=== PATIENT | male | born 2005 | race African-American/Black ===

== ENCOUNTER 2025-06-05 04:33 | Emergency (ER) | payer MEDICAID, SELFPAY ==
[2025-06-05 04:35] VITALS: BP 136/79; PULSE 91; RESP 20; TEMP 36.6; O2SAT 96; BMI 25.0
--- NOTE | 2025-06-05 04:48 | ED.VIS.DYS ---
HPI History of Present Illness Chief Complaint: Asthma Narrative Narrative: Patient is a 19-year-old male presenting to the emergency department for shortness of breath. Patient has a past medical history of asthma. Patient states that yesterday he was helping his mom move and was exerting himself for about 10 hours during the day. States that he thinks this flared up his asthma. He has a past medical history of asthma but does not currently use an inhaler. Woke up this morning with shortness of breath. States before this he felt well, denies any fever, chills, sore throat, cough, congestion. Denies any chest pain. Denies any lower extremity edema. States this feels like his prior asthma exacerbations. [facility] Medical History Asthma Home Medications ?Medication ?Instructions ?Recorded ?Last Taken ?Type albuterol sulfate 90 mcg/actuation 2 inh inhalation Q4H PRN wheezing 06/05/25 Unknown Rx breath activated powder inhaler #1 ea prednisone 50 mg tablet 50 mg PO DAILY 4 days #4 tabs 06/05/25 Unknown Rx Social History Smoking Status: Never smoker ROS ROS ED ROS Narrative See HPI EXAM Physical Exam Narrative Exam Narrative: Vital signs: Reviewed General: Alert and oriented x 3. No acute distress HEENT: Head is normocephalic and atraumatic, sinuses nontender, pupils equal round and reactive. Nares are patent. Oropharynx and throat exams normal. Neck: Supple without lymphadenopathy nontender Cardiovascular: Regular rate and rhythm, no murmurs. No rubs or gallops. Normal S1 and S2 Respiratory: Faint expiratory wheezing heard in all lung haro. No rhonchi or rails heard. Saturating 96% on room air. Not tachypneic. Abdominal: Soft and nontender. Normal bowel sounds. No guarding or rebound. Nonsurgical abdomen Extremities: No tenderness. No bruising. Normal range of motion. Normal sensation. Skin: No rash or redness. Neurological: Cranial nerves II through XII are grossly intact. Normal strength and sensation. Normal cerebellar function The rest of the physical exam is unremarkable Const Vital Signs: 06/05/25 04:35 06/05/25 04:37 06/05/25 04:57 Temperature 97.8 F Temperature Source Oral Pulse Rate 91 106 H Respiratory Rate 20 H 20 H Respiratory Effort Normal Non-Labored Respiratory Depth Normal Respiratory Pattern Normal Normal Blood Pressure 136/79 H Blood Pressure Mean 98 Pulse Ox 96 Oxygen Delivery Method Room Air Room Air MDM MDM MDM Narrative Medical decision making narrative: Patient is a 19-year-old male presenting emergency department for an asthma exacerbation. Patient was seen and examined. Vitals are stable. Patient resting bed comfortably no acute distress. No tachypnea on exam. No tachycardia. Saturating 96% on room air. Prednisone p.o. and breathing treatments were ordered. Feels similar to asthma exacerbations in the past. No chest pain. No indication for chest imaging, ekg or labs. Patient reevaluated. Feeling much better. Lungs are clear to auscultation. Mild tachycardia at 106, attribute this to the breathing treatments. Patient is asymptomatic. Patient given a 4-day prescription for prednisone and prescribed albuterol inhaler to use every 4 hours as needed for shortness of breath and wheezing. Given primary care follow-up. Patient discharged from the Emergency Department. I do not feel that the patient's evaluation reveals any acute reason for admission at this time. I instructed them to either follow-up with their primary care physician or promptly return to the Emergency Department for reevaluation should symptoms worsen or new symptoms develop. I explained what symptoms would indicate the need to return to the emergency department. Shared decision making was used. The patient voiced understanding of the treatment plan and is agreeable with it. Clinical impression Asthma exacerbation History & Record Review Discussion w/independent historian: Patient Discharge Plan Triage Chief Complaint: Asthma ED Provider: Marina Dutton Dx/Rx/DC Orders Clinical Impression: Asthma Instructions: ED Asthma, Acute (Adult) Prescriptions: New prednisone 50 mg tablet 50 mg PO DAILY 4 Days Qty: 4 0RF albuterol sulfate 90 mcg/actuation aerosol powdr breath activated 2 inh inhalation Q4H PRN (Reason: wheezing) Qty: 1 1RF Primary Care Provider: Care Physician,No Primary Referrals: Kehinde Turk MD [Med Staff - Certified Scrum Master] - 2 Days Activity Restrictions/Additional Instructions: Your evaluation in the Emergency Department did not reveal any acute reason for admission. However, I want to emphasize that you may be early in the course of a disease process or illness even if it is not present. For this reason you should follow-up within 24 hours for reevaluation with either your primary care physician or if necessary back here in the Emergency Department. You should return to the Emergency Department immediately if your symptoms worsen or new symptoms develop. Print Language: Greek Disposition Disposition: Home, Self Care
[2025-06-05 04:57] VITALS: PULSE 106; RESP 20
--- OUTSIDE RECORDS SUMMARY | 2025-06-05 05:21 | XMS RPT_ITS | CCD ---
Author Organization [facility] Inform ion [facility] Care Team Providers Care Archivist Economic History Name Role Phone KYLER ACKERMAN, MARIA E Herrera Primary Care Physician JENNIFER HI Attending Unavailable JENNIFER HI Primary Care Unavailable REFERRED, SELF Referring Unavailable REFERRED, SELF Referring Unavailable JENNIFER HI Attending Unavailable JENNIFER HI Primary Care Unavailable Unavailable Primary Care Provider Unavailabl e PHYSICIAN, NONE Primary Care Physician Unavailab le PHYSICIAN, NONE Primary Care Unavailable NOREEN CHAPMAN DO Attending Unavailable Cleveland Mckeon Attending Provider Cleevland Mckeon Attending Unavailable Medications Current Medications Medication Drug Class(es) Dates Sig (Normalized) Sig (Original) albuterol MDI (90 mcg/inh) CFC free inhalation aerosol (1 source) Start: 11-09-2024 take 2 puff(s) by inhalation four times daily as needed for wheezing albuterol MDI (90 mcg/inh) CFC free inhalation aerosol 2 puff(s), Inhalation, QID, PRN as needed for wheezing, # 6.7 gram(s), 0 Refill(s) Start Date: 11/09/24 Status: Ordered Quantity: 6.7 Unit: g Repeat number: 1 Amphetamine / Dextroamphetamine (1 source) Central Nervous System Stimulant Start: 10-26-2021 Adderall Oral, 0 Refill(s), 35 Start Date: 10/26/21 Status: Ordered Adderall (1 source) Central Nervous System Stimulant Start: 10-26-2021 Adderall Oral, 0 Refill(s), 35 Start Date: 10/26/21 Status: Ordered Repeat number: 1 Lexapro (2 sources) Serotonin Reuptake Inhibitor Start: 10-26-2021 Lexapro Oral, qDay, 0 Refill(s) Start Date: 10/26/21 Status: Ordered Repeat number: 1 Start: 10-26-2021 Lexapro Oral, qDay, 0 Refill(s) Start Date: 10/26/21 Status: Ordered hydrocortisone 25 mg/ml topical cream (1 source) Corticosteroid Start: 11-09-2024 End: 11-19-2024 hydrocortisone 2.5% topical cream Apply 1 yonny, Topical, TID, # 28 gram(s), 0 Refill(s), Cream, 68 Start Date: 11/09/24 Stop Date: 11/19/24 Status: Ordered Quantity: 28.0 Unit: g Repeat number: 1 Completed/Discontinued Medications Medication Drug Class(es) Dates Sig (Normalized) Sig (Original) B-Complex Plus (Pure Encapsulations) (2 sources) Start: 07-10-2021 End: 12-31-2024 take 1 capsule by mouth once daily at mealtime B-Complex Plus (Pure Encapsulations) Take 1 capsule by mouth daily with food. 07/10/2021 12/31/2024 Discontinued Start: 07-10-2021 take 1 capsule by mo uth once daily at mealtime B-Complex Plus (Pure Encapsulations) Take 1 capsule by mouth daily with food. 07/10/2021 Active Complete Mineral Complex (Adomik for PowerPot) (2 sources) Start: 07-10-2021 End: 12-31-2024 take 3 capsules by mouth once daily at mealtime Complete Mineral Complex (Adomik for PowerPot) Take 3 capsules by mouth daily with food. 07/10/2021 12/31/2024 Discontinued Start: 07-10-2021 take 3 capsules by m outh once daily at mealtime Complete Mineral Complex (Adomik for PowerPot) Take 3 capsules by mouth daily with food. 07/10/2021 Active Magnesium glycinate (2 sources) Start: 07-10-2021 End: 12-31-2024 Magnesium Glycinate 120mg - 90 ct. (Pure Encapsulations) Take 4 capsules daily 07/10/2021 12/31/2024 Discontinued Start: 07-10-2021 Magnesium Glyc inate 120mg - 90 ct. (Pure Encapsulations) Take 4 capsules daily 07/10/2021 Active OmegaGenics EPA-DHA 2400 (Hi gh Concentrate EPA/DHA liquid) (Loomia) (2 sources) Start: 07-10-2021 End: 12-31-2024 OmegaGenics EPA-DHA 2400 (Hi gh Concentrate EPA/DHA liquid) (Alve Technologyics) Take one teaspoon (5 ml) 2 times daily with food 07/10/2021 12/31/2024 Discontinued Start: 07-10-2021 OmegaGenics EP A-DHA 2400 (High Concentrate EPA/DHA liquid) (Loomia) Take one teaspoon (5 ml) 2 times daily with food 07/10/2021 Active Vitamin D [place] (KrowdPad) (2 sources) Start: 07-10-2021 End: 12-31-2024 take 1 capsule by mouth once daily at mealtime Vitamin D [place] (KrowdPad) Take 1 capsule by mouth daily with food. 07/10/2021 12/31/2024 Discontinued Start: 07-10-2021 take 1 capsule by mo uth once daily at mealtime Vitamin D [place] (KrowdPad) Take 1 capsule by mouth daily with food. 07/10/2021 Active Problems Problem Classification Problem Date Documented Da te Episodic/Chronic Allergic reactions (1 source) Eczema; Translations: [Dermatitis, unspecified] Onset: 11-09-2024 Episodic Nausea and vomiting (2 sources) Vomiting without nausea; Translations: [Vomiting without nausea] 10-18-2024 Episodic Other skin disorders (1 source) Impaired skin integrity; Translations: [Other skin changes] Onset: 11-09-2024 Episodic Suicide and intentional self-inflicted injury (1 source) Suicidal thoughts; Translations: [Suicidal ideations] Onset: 10-26-2021 Episodic Results Test Name Value Interpretation Reference Range Facility Office Visit Reporton [address] 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 CNOVon 12-31-2024 [facility] Office Visit ([facility]) ---- SARAI DARDEN ([id number]) 3 M Date Time Provider Department 12/31/24 7:30 PM JEMAL AYERS [facility] During your visit today, we recorded the following information about you: Temperature Pulse Respiration Blood pressure 99.1 degrees 86/minute 16/minute 122/71 Weight 77 kg Jemal Ayers MD 12/31/2024 7:51 PM Signed [facility] Subjective Sarai Darden is a 19 year old male. Patient presents with: jesus ponce note for missing work today d/t vomiting Patient presents tonight because he vomited this morning and was unable to go to work. He is feeling better now. He has had a viral illness with nasal congestion and rhinorrhea for about a week. His girlfriend had a vomiting illness recently also. He denies abdominal pain, diarrhea, hematochezia, or hematemesis. Review of Systems Objective BP 122/71 Pulse 86 Temp 37.3 ?C (99.1 ?F) Resp 16 Wt 77 kg (169 lb 12.1 oz) Physical Exam Constitutional: General: He is not in acute distress. Appearance: He is not ill-appearing or toxic-appearing. HENT: Right Ear: Tympanic membrane and ear canal normal. Left Ear: Tympanic membrane and ear canal normal. Nose: No congestion or rhinorrhea. Mouth/Throat: Pharynx: No oropharyngeal exudate or posterior oropharyngeal erythema. Eyes: Extraocular Movements: Extraocular movements intact. Conjunctiva/sclera: Conjunctivae normal. Pupils: Pupils are equal, round, and reactive to light. Cardiovascular: Rate and Rhythm: Normal rate and regular rhythm. Heart sounds: No murmur heard. Pulmonary: Effort: No respiratory distress. Breath sounds: No wheezing, rhonchi or rales. Abdominal: General: There is no distension. Palpations: Abdomen is soft. There is no mass. Tenderness: There is no abdominal tenderness. Musculoskeletal: Cervical back: Neck supple. Lymphadenopathy: Cervical: No cervical adenopathy. Neurological: Mental Status: He is alert. {ASSESSMENT/PLAN: 1. Vomiting, unspecified vomiting type, unspecified whether nausea present - ICD9: 787.03, ICD10: R11.10 Hydration with fluids encouraged. Resume normal solid intake as tolerated. Hand hygiene to reduce transmission. Follow up in the ER with signs of dehydration, increasing abdominal pain, high fever, or blood in vomit or stool. Jemal Ayers MD Differential Diagnoses - infectious gastroenteritis is more likely for the following reason(s): sick contact - resolved viral URI is more likely for the following reason(s): suggested by HANDP Procedures Allergies As of Date: 12/31/2024 (No Known Allergies) Date Reviewed: 12/31/2024 Reviewed by: Sridevi London MA - Fully Assessed Reason for Visit: jesus ponce note for missing work today d/t vomiting [Other] Primary Visit Diagnosis:Vomiting, unspecified vomiting type, unspecified whether nausea present [R11.10] Problem List As Of Date: 12/31/2024 (None) Medications Discontinued During This Encounter Prescriptions - OmegaGenics EPA-DHA 2400 (High Concentrate EPA/DHA liquid) (Alve Technologyics) (Discontinued) Reported on 10/18/2024 - Complete Mineral Complex (Designs for Health) (Discontinued) Reported on 10/18/2024 - B-Complex Plus (Pure Encapsulations) (Discontinued) Reported on 10/18/2024 - Magnesium Glycinate 120mg - 90 ct. (Pure Encapsulations) (Discontinued) Reported on 10/18/2024 - Vitamin D [place] (Adomik for PowerPot) (Discontinued) Reported on 10/18/2024 Level of Service: OFFICE/OUTPATIENT ESTABLISHED LOW MDM 20 MIN [11587] Letter Text Encounter Status:Closed by JEMAL AYERS on 12/31/24 [facility] CNOVon 10-18-2024 CN[facility] Office Visit ([facility]WSTR) ---- SARAI DARDEN ([id number]) 3 M Date Time Provider Department 10/18/24 7:30 PM CARI CHAUHAN [facility] During your visit today, we recorded the following information about you: Temperature Pulse Respiration Blood pressure 97.6 degrees 80/minute 16/minute 106/68 Weight 74 kg Cari Chauhan APRN.ASSOCIATE DIRECTOR DATA & ANALYTICS 10/18/2024 7:41 PM Signed CC: Patient presents with: Vomiting: x this am HPI: Sarai Dardne is a 18 year old male who presents to the office with complaint of vomited once from eating to much this morning Symptoms are improving Associated symptoms includes none. Denies fever, nausea, vomiting , and diarrhea. Treatments tried include nothing so far. with no relief of symptoms. Sick contacts: unknown. History of asthma, frequent episodes of bronchitis, chronic bronchitis, bronchiectasis or COPD: No Smoker: No Seasonal/environmen angela allergies: No The ROS is otherwise negative. The patient's pmh, medications, allergies, and past visits are reviewed. PHYSICAL EXAM: BP 106/68 Pulse 80 Temp 36.4 ?C (97.6 ?F) Resp 16 Wt 74 kg (163 lb 2.3 oz) SpO2 98% General appearance: alert, cooperative, pleasant, in no acute distress Head: Normocephalic Eyes: EOM's intact, conjunctiva pink and moist, no icterus, sclera white, non-injected Heart: Negative. RRR without obvious murmur, gallop, or rubs. No ectopy. Lungs: clear to auscultation, without rales or wheeze, good air exchange Abdomen: soft non tender No past medical history on file. No past surgical history on file. ALLERGIES Patient has no known allergies. MEDICATIONS OmegaGenics EPA-DHA 2400 (High Concentrate EPA/DHA liquid) (Loomia) Take one teaspoon (5 ml) 2 times daily with food (Patient not taking: Reported on 10/18/2024) Complete Mineral Complex (KrowdPad) Take 3 capsules by mouth daily with food. (Patient not taking: Reported on 10/18/2024) B-Complex Plus (Pure Encapsulations) Take 1 capsule by mouth daily with food. (Patient not taking: Reported on 10/18/2024) Magnesium Glycinate 120mg - 90 ct. (Pure Encapsulations) Take 4 capsules daily (Patient not taking: Reported on 10/18/2024) Vitamin D [place] (KrowdPad) Take 1 capsule by mouth daily with food. (Patient not taking: Reported on 10/18/2024) No family history on file. ASSESSMENT/PLAN: 1. Vomiting without nausea, unspecified vomiting type - ICD9: 787.03, ICD10: R11.11 Time believed to be an isolated incident. If patient symptoms persist or change patient will follow-up. Potential red flag symptoms discussed with the patient. Reviewed appropriate action plan to take if red flag symptoms occur. Patient agreeable to treatment plan. Cari Chauhan APRN.ASSOCIATE DIRECTOR DATA & ANALYTICS Allergies As of Date: 10/18/2024 (No Known Allergies) Date Reviewed: 10/18/2024 Reviewed by: Abby Matias MA - Fully Assessed Reason for Visit: Vomiting [120] Cmt: x this am Primary Visit Diagnosis:Vomiting without nausea, unspecified vomiting type [R11.11] Prescriptions as of 10/18/2024 - OmegaGenics EPA-DHA 2400 (High Concentrate EPA/DHA liquid) (Loomia) Take one teaspoon (5 ml) 2 times daily with food - Complete Mineral Complex (KrowdPad) Take 3 capsules by mouth daily with food. - B-Complex Plus (Pure Encapsulations) Take 1 capsule by mouth daily with food. - Magnesium Glycinate 120mg - 90 ct. (Pure Encapsulations) Take 4 capsules daily - Vitamin D [place] (KrowdPad) Take 1 capsule by mouth daily with food. Problem List As Of Date: 10/18/2024 (None) Letter Text Encounter Status:Closed by CARI CHAUHAN on 10/18/[address] 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 male. His chief complaint(s) include: Behavioral Problems (asthma/inhaler refill & Autism Concern - wants to know where/if he is on spectrum) Assessment 1. Behavior concern in adult Plan Sarai was seen today for behavioral problems. Diagnoses and associated orders for this visit: Behavior concern in adult - AMB Referral To Community Mental Health Services; Future No follow-ups on file. Subjective He is accompanied by his mother. Behavioral Problems The duration has been years. The pattern is persistent. The patient has exhibited the following behaviors apprehension, depression (past), extreme fear, feelings of sadness and feeling tired. The patient has exhibited the following behaviors no suicidal ideas. (history of cutting behavior for emotional comfort.) The behavior changes have been preceded by nothing. Primary Care Review of Systems Objective Vital Signs 12/18/22 1559 BP: 114/59 Pulse: 77 Temp: 37.1 C (98.7 F) TempSrc: Temporal Weight: 71.3 kg Height: (!) 190 cm Body mass index is 19.75 kg/m . Physical Exam Nursing note reviewed. Constitutional: He appears well. He is active. No distress. HENT: Head: Atraumatic. Ears: Right Ear: Tympanic membrane and external ear normal. Left Ear: Tympanic membrane and external ear normal. Nose: Nose normal. Mouth/Throat: Mucous membranes are moist. Dentition is normal. Oropharynx is clear. Eyes: EOM are normal. Pupils are equal, round, and reactive to light. Neck: Neck supple. Thyroid normal. Cardiovascular: Normal rate, regular rhythm, S1 normal and S2 normal. Pulses are palpable. Heart murmur not heard. Pulmonary/Chest: Breath sounds normal. No respiratory distress. Exhibits no deformity. Abdominal: Soft. Bowel sounds are normal. He exhibits no distension and no mass. There is no hepatosplenomegaly. There is no abdominal tenderness. Genitourinary: Testes and penis normal. No inguinal hernia is present. Musculoskeletal: Cervical back: Normal range of motion and neck supple. Lumbar back: No scoliosis. General: Normal range of motion. Neurological: He is alert. He has normal strength. He exhibits normal muscle tone. Gait normal. Skin: Skin is warm. Skin is not pale. Findings: No rash. Vitals reviewed: Blood pressure 114/59, pulse 77, temperature 37.1 C (98.7 F), temperature source Temporal, height (!) 190 cm, weight 71.3 kg. 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 male. His chief complaint(s) include: 16 YEAR WELL CHILD and ADHD Follow-up Assessment No diagnosis found. Plan There are no diagnoses linked to this encounter. No follow-ups on file. Subjective He is accompanied by his mother. 16 YEAR WELL CHILD Home: Sarai eats meals with family, has an adult to turn to for help and is permitted and able to make independent decisions. Sarai has no home risk identified. Education: Sarai is adjusting adequately. Eating: Sarai eats regular meals including fruits and vegetables, eats breakfast, limits fast food, drinks non-sweetened liquids and has a calcium source. Sarai does not have concerns about body appearance. Activities & Sports: Sarai has friends and participates in community activities. Drugs: Sarai does not use tobacco, does not use drugs, does not use alcohol and does not vape. Safety: Sarai has a violence free home. Suicidality: Sarai has depression, has anxiety and has mood swings. Sarai does not have a psychiatrist and is not engaged in counseling. Output Urine and Stool Pattern: Urine and Stool Pattern: Normal stool pattern, normal urine pattern. Teen Anticipatory Guidance The following anticipatory guidance was reviewed during the visit: Nutrition: limit junk food/fast food and soft drinks. Safety: home safety, use safety helmet/gear with activities and don't carry or use weapons. Social: avoid or limit screen time, explore heritage and cultural diversity, parental limits and consequences for unacceptable behavior and bullying. Health: age appropriate sleep habits, elevated noise and hearing, talk with trusted adult if feeling sad or nervous, learn to manage time and activities, be responsible for attendance/ homework/ course selection, learn about self and strengths, recognize and deal with stress and limit sun exposure/use sunscreen. Screenings Previous Vaccine Reactions: No. Life events information was reviewed-no referral needed Tuberculosis Concerns: Negative Tuberculosis Screen Concerns: no TB Risk Factors Hearing Vision Concerns: The caregiver has no concerns about the patient's hearing. The caregiver has no concerns about the patient's vision. Primary Care Review of Systems Objective Vital Signs 06/27/22 1559 BP: 128/59 Pulse: 79 Weight: 74.4 kg Height: 179.3 cm Body mass index is 23.14 kg/m . Physical Exam Nursing note reviewed. Constitutional: He appears well. He is active. No distress. HENT: Head: Atraumatic. Ears: Right Ear: Tympanic membrane and external ear normal. Left Ear: Tympanic membrane and external ear normal. Nose: Nose normal. Mouth/Throat: Mucous membranes are moist. Dentition is normal. Oropharynx is clear. Eyes: Conjunctivae and EOM are normal. No strabismus. Pupils are equal, round, and reactive to light. Neck: Neck supple. Thyroid normal. Cardiovascular: Normal rate, regular rhythm, S1 normal and S2 normal. Pulses are palpable. Heart murmur not heard. Pulmonary/Chest: Breath sounds normal. No respiratory distress. Exhibits no deformity. Abdominal: Soft. Bowel sounds are normal. He exhibits no distension and no mass. There is no hepatosplenomegaly. There is no abdominal tenderness. Genitourinary: Testes and penis normal. No inguinal hernia noted. Musculoskeletal: Cervical back: Normal range of motion and neck supple. Lumbar back: No scoliosis. General: Normal range of motion. Neurological: He is alert. He has normal strength. He exhibits normal muscle tone. Gait normal. Skin: Skin is warm. Skin is not pale. Findings: No rash. Vitals reviewed: Blood pressure 128/59, pulse 79, height 179.3 cm, weight 74.4 kg. Normal [facility] [id number] 10-27-2021 Date of Onset 20211025 Invalid Interpretation Code [facility] ([place]) Comment on above: Performed By: #### C OVD19 #### [place] [id number] Employed in Healthcare No Normal [facility] ([place]) Comment on above: Performed By: #### C OVD19 #### [address] [address] First Test Unknown Normal [facility] ([place]) Comment on above: Performed By: #### C OVD19 #### [place] [id number] [place], [place] [address] Hospitalized No [facility] access hospital ([place]) Comment on above: Performed By: #### C OVD19 #### [address] [address] ICU No [facility] ([place]) Comment on above: Performed By: #### C OVD19 #### [place] [address] Not Critical access hospital ([place]) Comment on above: Performed By: #### C OVD19 #### [place] [address] Resides in Congregate Care Setting No [facility] ([place]) Comment on above: Performed By: #### C OVD19 #### [address] [address] SARS-CoV-2 (COVID-19) RNA VINAYAK+probe Ql (Unsp spec) Negative Normal Negative [facility] ([place]) Comment on above: Performed By: #### C OVD19 #### [place] [address] SARS-CoV-2 (COVID-19) RNA VINAYAK+probe Ql (Unsp spec) Normal [facility] ([place]) Comment on above: Result Comment: Nega tive results do not preclude SARS-CoV-2 infection and should not be used as the sole basis for patient management decisions. Negative results must be combined with clinical observations, patient history, and epidemiological information. There is a risk of false negative values resulting from improperly collected, transported, or handled specimens. There is a risk of false negative values due to the presence of sequence variants in the pathogen targets of the assay, procedural errors, amplification inhibitors in specimens, or inadequate numbers of organisms for amplification. OZZIE SARS-CoV-2 Assay is a Real-Time reverse-transcriptase polymerase chain reaction (RT-PCR) based qualitative in vitro diagnostic test intended for the qualitative detection of nucleic acid from the SARS-CoV-2 in nasopharyngeal swab specimens collected from individuals suspected of COVID-19 by their healthcare provider. Testing is limited to laboratories certified under the Clinical Laboratory Improvement Amendments of 1988 (CLIA), 42 U.S.C. ?263a, to perform moderate and high complexity tests. COVID-19 Int Performed By: #### C OVD19 #### [place] [address] Symptomatic as Defined by CDC No Normal [facility] ([place]) Comment on above: Performed By: #### C OVD19 #### [place] [address] .Auto Diffon 10-26-2021 Basophil, Absolute 0.00 10 3/mcL Normal 0.00-0.19 [facility] ([place]) Comment on above: Performed By: #### C BC, ADIFF, ANEU, ACETA, CMP, BRODY, ALC #### [address] [address] Basophils/100 WBC (Bld) 0.7 % Normal 0.0-2.5 [facility] ([place]) Comment on above: Performed By: #### C BC, ADIFF, ANEU, ACETA, CMP, BRODY, ALC #### [address] [address] Eosinophil, Absolute 0.30 10 3/mcL Normal 0.00-0.40 [facility] ([place]) Comment on above: Performed By: #### C BC, ADIFF, ANEU, ACETA, CMP, BRODY, ALC #### [address] [address] Eosinophils/100 WBC (Bld) 5.4 % Normal 0.0-7.0 [facility] ([place]) Comment on above: Performed By: #### C BC, ADIFF, ANEU, ACETA, CMP, BRODY, ALC #### [address] [address] Lymphocyte, Absolute 2.50 10 3/mcL Normal 0.77-3.85 [facility] ([place]) Comment on above: Performed By: #### C BC, ADIFF, ANEU, ACETA, CMP, BRODY, ALC #### [address] [address] Lymphocytes/100 WBC (Bld) 41.8 % Normal 10.0-50.0 [facility] ([place]) Comment on above: Performed By: #### C BC, ADIFF, ANEU, ACETA, CMP, BRODY, ALC #### [address] [address] Monocyte, Absolute 0.60 10 3/mcL Normal 0.15-1.00 [facility] ([place]) Comment on above: Performed By: #### C BC, ADIFF, ANEU, ACETA, CMP, BRODY, ALC #### [address] [address] Monocytes/100 WBC (Bld) 9.8 % Normal 1.7-13.0 [facility] ([place]) Comment on above: Performed By: #### C BC, ADIFF, ANEU, ACETA, CMP, BRODY, ALC #### [address] [address] Neutrophils/100 WBC (Bld) 42.3 % Normal 37.0-80.0 [facility] ([place]) Comment on above: Performed By: #### C BC, ADIFF, ANEU, ACETA, CMP, BRODY, ALC #### [address] [address] .NEUABSon 10-26-2021 Neutrophil, Absolute 2.50 10 3/mcL Low 2.85-6.16 [facility] ([place]) Comment on above: Performed By: #### C BC, ADIFF, ANEU, ACETA, CMP, BRODY, ALC #### [address] [address] ACETAon 10-26-2021 Acetaminophen [Mass/Vol] 0 ug/mL Normal 10.0-30.0 [facility] ([place]) Comment on above: Performed By: #### C BC, ADIFF, ANEU, ACETA, CMP, BRODY, ALC #### [address] [address] Pablo 10-26-2021 Ethanol Level <3 Normal 0-3 [facility] ([place]) Comment on above: Performed By: #### C BC, ADIFF, ANEU, ACETA, CMP, BRODY, ALC #### [place] [id number] CBCon 10-26-2021 Erythrocyte distribution width (RBC) [Ratio] 13.5 % Normal 11.5-14.5 [facility] ([place]) Comment on above: Performed By: #### C BC, ADIFF, ANEU, ACETA, CMP, BRODY, ALC #### [place] [address] Hematocrit (Bld) [Volume fraction] 48.8 % Normal 42.0-52.0 [facility] ([place]) Comment on above: Performed By: #### C BC, ADIFF, ANEU, ACETA, CMP, BRODY, ALC #### [place] [place] [address] Hgb 17.1 G/dL Normal 14.0-18.0 [facility] ([place]) Comment on above: Performed By: #### C BC, ADIFF, ANEU, ACETA, CMP, BRODY, ALC #### [address] [address] MCH (RBC) [Entitic mass] 31.6 pg High 27.0-31.2 [facility] ([place]) Comment on above: Performed By: #### C BC, ADIFF, ANEU, ACETA, CMP, BRODY, ALC #### [place] [address] MCHC 35.1 G/dL Normal 31.8-35.4 [facility] ([place]) Comment on above: Performed By: #### C BC, ADIFF, ANEU, ACETA, CMP, BRODY, ALC #### [place] [address] MCV (RBC) [Entitic vol] 89.8 fL Normal 80.0-94.0 [facility] ([place] Comment on above: Performed By: #### C BC, ADIFF, ANEU, ACETA, CMP, BRODY, ALC #### [address] [address] Platelet 200 10 3/mcL Normal 130-400 [facility] ([place]) Comment on above: Performed By: #### C BC, ADIFF, ANEU, ACETA, CMP, BRODY, ALC #### [address] [address] Platelet mean volume (Bld) [Entitic vol] 7.4 fL Normal 7.4-10.4 [facility] ([place]) Comment on above: Performed By: #### C BC, ADIFF, ANEU, ACETA, CMP, BRODY, ALC #### [address] [address] RBC 5.43 10 6/mcL Normal 4.04-6.13 [facility] ([place]) Comment on above: Performed By: #### C BC, ADIFF, ANEU, ACETA, CMP, BRODY, ALC #### [address] [address] WBC 6.00 10 3/mcL Normal 4.60-10.80 [facility] ([place]) Comment on above: Performed By: #### C BC, ADIFF, ANEU, ACETA, CMP, BRODY, ALC #### [address] [address] CMPon 10-26-2021 Albumin Level 4.7 G/dL Normal 3.5-5.0 [facility] ([place]) Comment on above: Performed By: #### C BC, ADIFF, ANEU, ACETA, CMP, BRODY, ALC #### [address] [address] Albumin/Globulin [Mass ratio] 1.3 {ratio} Normal 1.1-2.5 [facility] ([place]) Comment on above: Performed By: #### C BC, ADIFF, ANEU, ACETA, CMP, BRODY, ALC #### [address] [address] ALP [Catalytic activity/Vol] 162 U/L Normal 135-450 [facility] ([place]) Comment on above: Performed By: #### C BC, ADIFF, ANEU, ACETA, CMP, BRODY, ALC #### [address] [address] ALT [Catalytic activity/Vol] 25 U/L Normal 16-63 [facility] ([place] Comment on above: Performed By: #### C BC, ADIFF, ANEU, ACETA, CMP, BRODY, ALC #### [address] [address] AST [Catalytic activity/Vol] 21 U/L Normal 10-40 [facility] ([place] Comment on above: Performed By: #### C BC, ADIFF, ANEU, ACETA, CMP, BRODY, ALC #### [address] [address] Bili Total 0.9 mg/dL Normal 0.2-1.0 [facility] ([place]) Comment on above: Result Comment: Use of this assay is not recommended for patients undergoing treatment with eltrombopag due to the potential for falsely elevated results. Performed By: #### C BC, ADIFF, ANEU, ACETA, CMP, BRODY, ALC #### [address] [address] BUN/Creatinine Ratio 17 ratio Normal 7-27 [facility] ([place]) Comment on above: Performed By: #### C BC, ADIFF, ANEU, ACETA, CMP, BRODY, ALC #### [address] [address] Calcium [Mass/Vol] 9.4 mg/dL Normal 8.4-10.2 [facility] ([place]) Comment on above: Performed By: #### C BC, ADIFF, ANEU, ACETA, CMP, BRODY, ALC #### [address] [address] Chloride [Moles/Vol] 102 mmol/L Normal 98-107 [facility] ([place]) Comment on above: Performed By: #### C BC, ADIFF, ANEU, ACETA, CMP, BRODY, ALC #### [address] [address] CO2 [Moles/Vol] 26 mmol/L Normal 22-29 [facility] ([place]) Comment on above: Performed By: #### C BC, ADIFF, ANEU, ACETA, CMP, BRODY, ALC #### [address] [address] Creatinine [Mass/Vol] 1.01 mg/dL Normal 0.70-1.30 [facility] ([place]) Comment on above: Performed By: #### C BC, ADIFF, ANEU, ACETA, CMP, BRODY, ALC #### [address] [address] Electrolyte Balance 13.0 mEq/L Normal 4.0-15.0 [facility] ([place]) Comment on above: Performed By: #### C BC, ADIFF, ANEU, ACETA, CMP, BRODY, ALC #### [address] [address] Globulin 3.5 G/dL Normal [facility] ([place]) Comment on above: Performed By: #### C BC, ADIFF, ANEU, ACETA, CMP, BRODY, ALC #### [address] [address] Glucose [Mass/Vol] 90 mg/dL Normal 70-105 [facility] ([place]) Comment on above: Performed By: #### C BC, ADIFF, ANEU, ACETA, CMP, BRODY, ALC #### [address] [address] Potassium [Moles/Vol] 4.1 mmol/L Normal 3.5-5.1 [facility] ([place]) Comment on above: Performed By: #### C BC, ADIFF, ANEU, ACETA, CMP, BRODY, ALC #### [address] [address] Sodium [Moles/Vol] 141 mmol/L Normal 136-145 [facility] ([place]) Comment on above: Performed By: #### C BC, ADIFF, ANEU, ACETA, CMP, BRODY, ALC #### [address] [address] Total Protein 8.2 G/dL Normal 6.4-8.2 [facility] ([place]) Comment on above: Performed By: #### C BC, ADIFF, ANEU, ACETA, CMP, BRODY, ALC #### [place] [id number] [place], [place] [address] Urea nitrogen [Mass/Vol] 17 mg/dL Normal 7-18 [facility] ([place]) Comment on above: Performed By: #### C BC, ADIFF, ANEU, ACETA, CMP, BRODY, ALC #### [place] [id number] [place], [place] [address] LABORATORYOrdered By: Naida Banuelos on 10-26-2021 Acetaminophen [Mass/Vol] 0 ug/mL Invalid Interpretation Code 10.0 - 30.0 mcg/mL AO Chemistry S Albumin BCP dye [Mass/Vol] 4.7 G/dL Invalid Interpretation Code 3.5 - 5.0 G/dL AO ADM SS Albumin/Globulin [Mass ratio] 1.3 {ratio} Invalid Interpretation Code 1.1 - 2.5 ratio AO ADM SS ALP [Catalytic activity/Vol] 162 U/L Invalid Interpretation Code 135 - 450 U/L AO ADM SS ALT With P-5'-P [Catalytic activity/Vol] 25 U/L Invalid Interpretation Code 16 - 63 U/L AO ADM SS AST With P-5'-P [Catalytic activity/Vol] 21 U/L Invalid Interpretation Code 10 - 40 U/L AO ADM SS Bilirubin [Mass/Vol] 0.9 mg/dL Invalid Interpretation Code 0.2 - 1.0 mg/dL AO ADM SS Calcium [Mass/Vol] 9.4 mg/dL Invalid Interpretation Code 8.4 - 10.2 mg/dL AO ADM SS Chloride [Moles/Vol] 102 mmol/L Invalid Interpretation Code 98 - 107 mmol/L AO ADM SS CO2 [Moles/Vol] 26 mmol/L Invalid Interpretation Code 22 - 29 mmol/L AO ADM SS Creatinine [Mass/Vol] 1.01 mg/dL Invalid Interpretation Code 0.70 - 1.30 mg/dL AO ADM SS Electrolyte Balance 13.0 mEq/L Invalid Interpretation Code 4.0 - 15.0 mEq/L AO ADM SS Ethanol [Mass/Vol] mg/dL Invalid Interpretation Code 0 - 3 mg/dL AO ADM SS Globulin 3.5 G/dL Invalid Interpretation Code AO ADM SS Glucose [Mass/Vol] 90 mg/dL Invalid Interpretation Code 70 - 105 mg/dL AO ADM SS Potassium [Moles/Vol] 4.1 mmol/L Invalid Interpretation Code 3.5 - 5.1 mmol/L AO ADM SS Protein [Mass/Vol] 8.2 G/dL Invalid Interpretation Code 6.4 - 8.2 G/dL AO ADM SS Salicylate Level mg/dL Invalid Interpretation Code 2.8 - 20.0 mg/dL AO Chemistry S Sodium [Moles/Vol] 141 mmol/L Invalid Interpretation Code 136 - 145 mmol/L AO ADM SS Urea nitrogen [Mass/Vol] 17 mg/dL Invalid Interpretation Code 7 - 18 mg/dL AO ADM SS Urea nitrogen/Creatinine [Mass ratio] 17 ratio Invalid Interpretation Code 7 - 27 ratio AO ADM SS LABORATORYOrdered By: Mayi Rubio on 10-26-2021 ADMITTED TO INTENSIVE CARE UNIT FOR CONDITION OF INTEREST:FIND:PT:^PAT IENT:ORD: No (10/26/21 8:29 PM) Invalid Interpretation Code AO Auto Urine SS Amphetamines Screen Ql (U) Positive (10/26/21 8:29 PM) Invalid Interpretation Code AO Manual Urine SS Barbiturates Screen Ql (U) Negative (10/26/21 8:29 PM) Invalid Interpretation Code AO Manual Urine SS Basophil, Absolute 0.00 103/mcL Invalid Interpretation Code 0.00 - 0.19 10^3/mcL AO Auto Heme SS Basophils/100 WBC (Bld) 0.7 % Invalid Interpretation Code 0.0 - 2.5 % AO Auto Heme SS Benzodiazepines Ql (U) Negative (10/26/21 8:29 PM) Invalid Interpretation Code AO Manual Urine SS Benzoylecgonine Screen Ql (U) Negative (10/26/21 8:29 PM) Invalid Interpretation Code AO Manual Urine SS Cannabinoids tested Screen Nom (U) Negative (10/26/21 8:29 PM) Invalid Interpretation Code AO Manual Urine SS EMPLOYED IN A HEALTHCARE SETTING:FIND:PT:^NASEEM ENT:ORD: No (10/26/21 8:29 PM) Invalid Interpretation Code AO Auto Urine SS Eosinophil, Absolute 0.30 103/mcL Invalid Interpretation Code 0.00 - 0.40 10^3/mcL AO Auto Heme SS Eosinophils/100 WBC (Bld) 5.4 % Invalid Interpretation Code 0.0 - 7.0 % AO Auto Heme SS Erythrocyte distribution width (RBC) [Ratio] 13.5 % Invalid Interpretation Code 11.5 - 14.5 % AO Auto Heme SS FIRST TEST FOR CONDITION OF INTEREST:FIND:PT:^PAT IENT:ORD: Unknown (10/26/21 8:29 PM) Invalid Interpretation Code AO Auto Urine SS HAS SYMPTOMS RELATED TO CONDITION OF INTEREST:FIND:PT:^PAT IENT:ORD: No (10/26/21 8:29 PM) Invalid Interpretation Code AO Auto Urine SS Hematocrit (Bld) [Volume fraction] 48.8 % Invalid Interpretation Code 42.0 - 52.0 % AO Auto Heme SS Hemoglobin (Bld) [Mass/Vol] 17.1 G/dL Invalid Interpretation Code 14.0 - 18.0 G/dL AO Auto Heme SS Illness or injury onset date and time [id number] Invalid Interpretation Code AO Auto Urine SS Lymphocyte, Absolute 2.50 103/mcL Invalid Interpretation Code 0.77 - 3.85 10^3/mcL AO Auto Heme SS Lymphocytes/100 WBC (Bld) 41.8 % Invalid Interpretation Code 10.0 - 50.0 % AO Auto Heme SS MCH (RBC) [Entitic mass] 31.6 pg Invalid Interpretation Code 27.0 - 31.2 pg AO Auto Heme SS MCHC (RBC) [Mass/Vol] 35.1 G/dL Invalid Interpretation Code 31.8 - 35.4 G/dL AO Auto Heme SS MCV (RBC) [Entitic vol] 89.8 fL Invalid Interpretation Code 80.0 - 94.0 fL AO Auto Heme SS Methadone Screen Ql (U) Negative (10/26/21 8:29 PM) Invalid Interpretation Code AO Manual Urine SS Monocyte, Absolute 0.60 103/mcL Invalid Interpretation Code 0.15 - 1.00 10^3/mcL AO Auto Heme SS Monocytes/100 WBC (Bld) 9.8 % Invalid Interpretation Code 1.7 - 13.0 % AO Auto Heme SS Neutrophil, Absolute 2.50 103/mcL Invalid Interpretation Code 2.85 - 6.16 10^3/mcL AO Auto Heme SS Neutrophils/100 WBC (Bld) 42.3 % Invalid Interpretation Code 37.0 - 80.0 % AO Auto Heme SS Opiates Screen Ql (U) Negative (10/26/21 8:29 PM) Invalid Interpretation Code AO Manual Urine SS Patient was hospitalized because of this condition No (10/26/21 8:29 PM) Invalid Interpretation Code AO Auto Urine SS Phencyclidine Ql (U) Negative (10/26/21 8:29 PM) Invalid Interpretation Code AO Manual Urine SS Platelet mean volume (Bld) [Entitic vol] 7.4 fL Invalid Interpretation Code 7.4 - 10.4 fL AO Auto Heme SS Platelets (Bld) [#/Vol] 200 103/mcL Invalid Interpretation Code 130 - 400 10^3/mcL AO Auto Heme SS status Not (10/26/21 8:29 PM) Invalid Interpretation Code AO Auto Urine SS RBC (Bld) [#/Vol] 5.43 106/mcL Invalid Interpretation Code 4.04 - 6.13 10^6/mcL AO Auto Heme SS RESIDES IN A CONGREGATE CARE SETTING:FIND:PT:^NASEEM ENT:ORD: No (10/26/21 8:29 PM) Invalid Interpretation Code AO Auto Urine SS SARS-CoV-2 (COVID-19) RNA VINAYAK+probe Ql (Resp) Negative (10/26/21 8:29 PM) Invalid Interpretation Code Negative AO Auto Urine SS SARS-CoV-2 (COVID-19) RNA VINAYAK+probe Ql (Unsp spec) Negative results do not preclude SARS-CoV-2 infection and should not be used as the sole basis for patient management decisions. Negative results must be combined with clinical observations, patient history, and epidemiological information.There is a risk of false negative values resulting from improperly collected, transported, or handled specimens.There is a risk of false negative values due to the presence of sequence variants in the pathogen targets of the assay, procedural errors, amplification inhibitors in specimens, or inadequate numbers of organisms for amplification.OZZIE SARS-CoV-2 Assay is a Real-Time reverse-transcripta se polymerase chain reaction (RT-PCR) based qualitative in vitro diagnostic test intended for the qualitative detection of nucleic acid from the SARS-CoV-2 in nasopharyngeal swab specimens collected from individuals suspected of COVID-19 by their healthcare provider. Testing is limited to laboratories certified under the Clinical Laboratory Improvement Amendments of 1988 (CLIA), 42 U.S.C. 263a, to perform moderate and high complexity tests. Invalid Interpretation Code AO Auto Urine SS Tricyclic antidepressants Screen Ql (U) Negative (10/26/21 8:29 PM) Invalid Interpretation Code AO Manual Urine SS WBC (Bld) [#/Vol] 6.00 103/mcL Invalid Interpretation Code 4.60 - 10.80 10^3/mcL AO Auto Heme SS SALon 10-26-2021 Salicylate Level <0.2 Normal 2.8-20.0 [facility] ([place]) Comment on above: Performed By: #### C BC, ADIFF, ANEU, ACETA, CMP, BRODY, ALC #### [place] [address] [address] TOXSCon 10-26-2021 U Ampheta (AO) Positive Normal [facility] ([place]) Comment on above: Performed By: #### T OXSC #### [place] [address] [address] U Camille (AO) Negative Normal [facility] ([place]) Comment on above: Performed By: #### T OXSC #### [address] [address] U Jamil (AO) Negative Normal [facility] ([place]) Comment on above: Performed By: #### T OXSC #### [place] [address] [address] U Cannab (AO) Negative Normal [facility] ([place]) Comment on above: Performed By: #### T OXSC #### [place] [address] [address] U Cocaine (AO) Negative Normal [facility] ([place]) Comment on above: Performed By: #### T OXSC #### [place] [address] [address] U Methadone (AO) Negative Normal [facility] ([place]) Comment on above: Performed By: #### T OXSC #### [address] [address] U PCP (AO) Negative Normal [facility] ([place]) Comment on above: Performed By: #### T OXSC #### [facility] [address] [place], [place] [address] U TCA (AO) Negative Normal [facility] ([place]) Comment on above: Performed By: #### T OXSC #### [facility] [address] [place], [place] [address] Urine Opiates (AO) Negative Normal [facility] ([place]) Comment on above: Performed By: #### T OXSC #### [facility] [address] [place], [place] [address] Vital Signs Date Time Vital Sign Value Performing Clinician Facility 12-31-2024 19:36-0400 Body temperature 99.1 [degF] Jemal Ayers MD Work Phone: [facility] 12-31-2024 19:36-0400 Body weight 77 kg Jemal Ayers MD Work Phone: [facility] 12-31-2024 19:36-0400 Diastolic blood pressure 71 mm[Hg] Jemal Ayers MD Work Phone: [facility] 12-31-2024 19:36-0400 Heart rate 86 /min Jemal Ayers MD Work Phone: [facility] 12-31-2024 19:36-0400 Respiratory rate 16 /min Jemal Ayers MD Work Phone: [facility] 12-31-2024 19:36-0400 Systolic blood pressure 122 mm[Hg] Jemal Ayers MD Work Phone: [facility] 11-09-2024 11:27-0500 Body height 180 cm NOREEN CHAPMAN DO [facility] 11-09-2024 11:27-0500 Body temperature 98.42 [degF] NOREEN CHAPMAN DO [facility] 11-09-2024 11:27-0500 Body weight 68 kg NOREEN CHAPMAN DO [facility] 11-09-2024 11:27-0500 Diastolic Blood Pressure Non-Invasive 75 mm[Hg] NOREEN CHAPMAN DO [facility] 11-09-2024 11:27-0500 Heart rate 71 /min NOREEN CHAPMAN DO [facility] 11-09-2024 11:27-0500 Height ZScore 0.[address] [facility] Comment on above: Result Comment: ^~:!ZScore [facility] 11-09-2024 11:27-0500 Percent Height for Age 67.11 % NOREEN CHAPMAN DO [facility] Comment on above: Result Comment: ^~:!Percentile Source [facility] 11-09-2024 11:27-0500 Respiratory rate 16 /min ONREEN CHAPMAN DO [facility] 11-09-2024 11:27-0500 Systolic Blood Pressure Non-Invasive 113 mm[Hg] NOREEN CHAPMAN DO [facility] 10-18-2024 19:32-0500 Body temperature 97.59 [degF] Cari Chauhan APRN.ASSOCIATE [employer] Work Phone: [facility] 10-18-2024 19:32-0500 Body weight 74 kg Cari Chauhan APRN.ASSOCIATE [employer] Work Phone: [facility] 10-18-2024 19:32-0500 Diastolic blood pressure 68 mm[Hg] Cari Chauhan APRN.ASSOCIATE [employer] Work Phone: [facility] 10-18-2024 19:32-0500 Heart rate 80 /min Cari Chauhan APRN.ASSOCIATE [employer] Work Phone: [facility] 10-18-2024 19:32-0500 Respiratory rate 16 /min Cari Chauhan APRN.ASSOCIATE [employer]NA[employer] Work Phone: [facility] 10-18-2024 19:32-0500 SaO2% (BldA) [Mass fraction] 98 % Cari Chauhan APRN.ASSOCIATE [employer]NA[employer] Work Phone: [facility] 10-18-2024 19:32-0500 Systolic blood pressure 106 mm[Hg] Cari Chauhan APRN.ASSOCIATE [employer] Work Phone: [facility] 10-26-2021 23:00-0500 Diastolic blood pressure 68 mm[Hg] DR AKIN PALMER MD [facility] 10-26-2021 23:00-0500 Heart rate 75 /min DR AKIN PALMER MD [facility] 10-26-2021 23:00-0500 Systolic blood pressure 112 mm[Hg] DR AKIN PALMER MD [facility] 10-26-2021 21:28-0500 Diastolic blood pressure 69 mm[Hg] DR AKIN PALMER MD [facility] 10-26-2021 21:28-0500 Heart rate 87 /min DR AKIN PALMER MD [facility] 10-26-2021 21:28-0500 Reason For Taking VItal Signs DR AKIN PALMER MD [facility] 10-26-2021 21:28-0500 Respiratory rate 16 /min DR AKIN PALMER MD [facility] 10-26-2021 21:28-0500 Systolic blood pressure 110 mm[Hg] DR AKIN PALMER MD [facility] 10-26-2021 18:51-0500 Body temperature 98.42 [degF] DR AKIN PALMER MD [facility] 10-26-2021 18:51-0500 Diastolic blood pressure 77 mm[Hg] DR AKIN PALMER MD [facility] 10-26-2021 18:51-0500 Heart rate 107 /min DR AKIN PALMER MD [facility] 10-26-2021 18:51-0500 Systolic blood pressure 122 mm[Hg] DR AKIN PALMER MD [facility] Encounters Encounter Date Encounter Type Care Provider Facility Start: 05-24-2025 End: 05-24-2025 Patient encounter procedure [facility] Work Phone: Start: 05-24-2025 End: 05-24-2025 ambulatory [facility] Start: 12-31-2024 End: 12-31-2024 ambulatory Facility:[facility] Start: 12-31-2024 End: 12-31-2024 Office outpatient visit 15 minutes Jemal Ayers MD Work Phone: [facility] Comment on above: Vomiting, unspecifie d vomiting type, unspecified whether nausea present (Primary Dx) Start: 11-09-2024 End: 11-09-2024 Emergency department patient visit NOREEN ADELA BORGES [facility] Start: 10-18-2024 End: 10-18-2024 ambulatory Facility:[facility] Start: 10-18-2024 End: 10-18-2024 Patient encounter procedure Cari Evans SOLIMAN.ASSOCIATE DIRECTOR DATA [employer] ANALYTICS Work Phone: [facility] Comment on above: Vomiting without sienna sea, unspecified vomiting type (Primary Dx) Start: 12-18-2022 End: 12-18-2022 ambulatory SELF REFERRED [facility] Start: 06-27-2022 End: 06-27-2022 ambulatory JNENIFERGAUTAM MARIN [facility] Start: 05-14-2022 Telephone encounter Huseyin yancey MD Work Phone: [facility] [address] [place] [address] Work Phone: Start: 10-26-2021 End: 10-27-2021 Emergency department patient visit DR AKIN PALMER MD [facility] Procedures Date Procedure Procedure Detail Performing Clinician None (qualifier value) DR ADAM PALMER MD Plan of Treatment Date Care Activity Detail Author Start: 06-06-2024 Covid-19 Vaccine ( season) Covid-19 Vaccine ( season) [facility] Start: 06-06-2024 Influenza vaccination Influenza Vacc ine (#1) [facility] Start: 2022 Anxiety Screening Anxiety Screening [facility] Start: 2022 Depression Screening Depression Scre ening [facility] Start: 2022 Hepatitis C screening Hepatitis C N[place] mary lou [facility] Start: 2022 HIV screening HIV Screening [facility] Start: 2020 Meningococcal B Vacc ine (1 of 2 - Standard) Meningococcal B Vaccine (1 of 2 - Standard) [facility] Start: 2020 Meningococcal B Vacc ine: Consider Based On Risk (1 of 2 - Patient Seeks Protection) Meningococcal B Vaccine: Consider Based On Risk (1 of 2 - Patient Seeks Protection) [facility] Start: 2019 HPV Vaccine (1 - Mal e 3-dose series) HPV Vaccine (1 - Male 3-dose series) [facility] Start: 2018 Peds To Adult Transi tion Annual Assessment Peds To Adult Transition Annual Assessment [facility] Start: 2016 Peds To Adult Transi tion Initial Discussion Peds To Adult Transition Initial Discussion [facility] Start: 2015 Urine microalbumin profile DTa P,Tdap,Td Vaccine (6 - Tdap) [facility] Immunizations Immunization Date Immunization Notes Care Provider Robert ferreira 08-23-2005 influenza virus vacc ine, unspecified formulation Cari Chauhan APRN.[facility] Work Phone: [facility] Payers Date Payer Category Payer Medicaid [facility] [id number] 2024 Private Health Insurance [id number] 2024 Self-pay [id number] 2004 Unknown [id number] 2004 Unknown [id number] 1975 Unknown [id number] Unknown Self Pay Unknown [id number] Social History Date Type Detail Facility Tobacco Nicotine Use: [facility]. [facility] Tobacco smoking stat us NHIS Tobacco smoking consumption unknown [facility] Start: 07-10-2021 History of Social function [facility] Start: 07-10-2021 Area Deprivation Index [facility] National Score (1-10 0), lower number is lower risk Not on file [facility] Start: 2004 Sex assigned at Not on file [facility] Start: 07-06-2015 Sex Male (finding) [facility] Start: 2004 Sex Assigned At Male [facility] Functional Status Date Assessment Result Facility 11-09-2024 Functional Status ID band on, Call device within reach, Bed in low position, Wheels locked [facility] Mental Status Date Assessment Result Facility 11-09-2024 Mental Status Oriented x 4 [facility] Clinical Notes 10-26-2021 to 12-31-2024 Jemal Ayers MD - 12/31/2024 7:45 PM Cari Miguel APRN.ASSOCIATE DIRECT[employer]LY[employer]ICS - 10/18/2024 7:37 PM EST Note Date & Type Note Facility 12-31-2024 Note HNO ID: [id number] Author: JEMAL AYERS MD Service: ? Author Type: Physician Type: Progress Notes Filed: 12/31/2024 19:51 Note Text: [facility] Subjective Sarai Darden is a 19 year old male. Patient presents with: jesus ponce note for missing work today d/t vomiting Patient presents tonight because he vomited this morning and was unable to go to work. He is feeling better now. He has had a viral illness with nasal congestion and rhinorrhea for about a week. His girlfriend had a vomiting illness recently also. He denies abdominal pain, diarrhea, hematochezia, or hematemesis. Review of Systems Objective BP 122/71 Pulse 86 Temp 37.3 ?C (99.1 ?F) Resp 16 Wt 77 kg (169 lb 12.1 oz) Physical Exam Constitutional: General: He is not in acute distress. Appearance: He is not ill-appearing or toxic-appearing. HENT: Right Ear: Tympanic membrane and ear canal normal. Left Ear: Tympanic membrane and ear canal normal. Nose: No congestion or rhinorrhea. Mouth/Throat: Pharynx: No oropharyngeal exudate or posterior oropharyngeal erythema. Eyes: Extraocular Movements: Extraocular movements intact. Conjunctiva/sclera: Conjunctivae normal. Pupils: Pupils are equal, round, and reactive to light. Cardiovascular: Rate and Rhythm: Normal rate and regular rhythm. Heart sounds: No murmur heard. Pulmonary: Effort: No respiratory distress. Breath sounds: No wheezing, rhonchi or rales. Abdominal: General: There is no distension. Palpations: Abdomen is soft. There is no mass. Tenderness: There is no abdominal tenderness. Musculoskeletal: Cervical back: Neck supple. Lymphadenopathy: Cervical: No cervical adenopathy. Neurological: Mental Status: He is alert. {ASSESSMENT/PLAN: 1. Vomiting, unspecified vomiting type, unspecified whether nausea present - ICD9: 787.03, ICD10: R11.10 Hydration with fluids encouraged. Resume normal solid intake as tolerated. Hand hygiene to reduce transmission. Follow up in the ER with signs of dehydration, increasing abdominal pain, high fever, or blood in vomit or stool. Jemal Ayers MD Differential Diagnoses - infectious gastroenteritis is more likely for the following reason(s): sick contact - resolved viral URI is more likely for the following reason(s): suggested by HANDP Procedures [facility] 12-31-2024 History of Present illness Narrative [facility] Subjective Sarai Darden is a 19 year old male. Patient presents with: jesus eng for missing work today d/t vomiting Patient presents tonight because he vomited this morning and was unable to go to work. He is feeling better now. He has had a viral illness with nasal congestion and rhinorrhea for about a week. His girlfriend had a vomiting illness recently also. He denies abdominal pain, diarrhea, hematochezia, or hematemesis. Review of Systems Objective BP 122/71 Pulse 86 Temp 37.3 C (99.1 F) Resp 16 Wt 77 kg (169 lb 12.1 oz) Physical Exam Constitutional: General: He is not in acute distress. Appearance: He is not ill-appearing or toxic-appearing. HENT: Right Ear: Tympanic membrane and ear canal normal. Left Ear: Tympanic membrane and ear canal normal. Nose: No congestion or rhinorrhea. Mouth/Throat: Pharynx: No oropharyngeal exudate or posterior oropharyngeal erythema. Eyes: Extraocular Movements: Extraocular movements intact. Conjunctiva/sclera: Conjunctivae normal. Pupils: Pupils are equal, round, and reactive to light. Cardiovascular: Rate and Rhythm: Normal rate and regular rhythm. Heart sounds: No murmur heard. Pulmonary: Effort: No respiratory distress. Breath sounds: No wheezing, rhonchi or rales. Abdominal: General: There is no distension. Palpations: Abdomen is soft. There is no mass. Tenderness: There is no abdominal tenderness. Musculoskeletal: Cervical back: Neck supple. Lymphadenopathy: Cervical: No cervical adenopathy. Neurological: Mental Status: He is alert. {ASSESSMENT/PLAN: 1. Vomiting, unspecified vomiting type, unspecified whether nausea present - ICD9: 787.03, ICD10: R11.10 Hydration with fluids encouraged. Resume normal solid intake as tolerated. Hand hygiene to reduce transmission. Follow up in the ER with signs of dehydration, increasing abdominal pain, high fever, or blood in vomit or stool. Jemal Ayers MD Differential Diagnoses - infectious gastroenteritis is more likely for the following reason(s): sick contact - resolved viral URI is more likely for the following reason(s): suggested by H&P Procedures documented in this encounter [facility] 11-09-2024 Hospital Discharge instructions Patient Education 11/09/2024 11:36:03 Atopic Dermatitis (Eczema) Atopic Dermatitis (Adult) Atopic dermatitis is a dry, itchy, red rash. It s also called eczema. The rash is chronic, or ongoing. It can come and go over time. The disease is often passed down in families. It causes a problem with the skin barrier that makes the skin more sensitive to the environment and other factors. The increased skin sensitivity causes an itch, which causes scratching. Scratching can worsen the itching or also break the skin. This can put the skin at risk of infection. The condition is most common in people with asthma, hay fever, hives, or dry or sensitive skin. The rash may be caused by extreme heat or heavy sweating. Skin irritants can cause the rash to flare up. These can include wool or silk clothing, grease, oils, some medicines, and harsh soaps and detergents. Emotional stress can also be a trigger. Treatment is done to relieve the itching and inflammation of the skin. Home care Follow these tips to care for your condition: Keep the areas of rash clean by bathing at least every other day. Use lukewarm water to bathe. Don t use hot water, which can dry out the skin. Don t use soaps with strong detergents. Use mild soaps made for sensitive skin. Apply a cream or ointment to damp skin right after bathing. Avoid things that irritate your skin. Wear absorbent, soft fabrics next to the skin rather than rough or scratchy materials. Use mild laundry soap free of scents and perfumes. Make sure to rinse all the soap out of your clothes. Treat any skin infection as directed. Use oral diphenhydramine to help reduce itching. This is an antihistamine you can buy at drug and grocery stores. It can make you sleepy, so use lower doses during the daytime. Or you can use loratadine. This is an antihistamine that will not make you sleepy. Do not use diphenhydramine if you have glaucoma or have trouble urinating due to an enlarged prostate. Follow-up care See your healthcare provider, or as advised. If your symptoms don t get better or if they get worse in the next 7 days, make an appointment with your healthcare provider. When to seek medical advice Call your healthcare provider right away if any of these occur: Increasing area of redness or pain in the skin Yellow crusts or wet drainage from the rash Fever of 100.4 F (38 C) or higher, or as directed by your healthcare provider [id number] The [employer]. [address] [place] [address], [place] [address]. All rights reserved. This information is not intended as a substitute for professional medical care. Always follow your healthcare professional's instructions. Follow Up Care 11/09/2024 11:21:00 With:RICHARD PERRY DO Address: [address] [place] [address] [place] [phone] When:2-4 days With:Go to emergency room if symptoms worsen Address:Unknown When:2-[address] [facility] 11-09-2024 Note Discharge Instructions Thank you for allowing [facility] to assist you with your healthcare needs. The following is important discharge information regarding your hospital visit. Diagnosis from Today's Visit Eczema Skin irritation What to Do Next Instructions from Your Care Team please remove all irritative soaps and detergents and deodorants. ensure to use a hydrating cream following showering. may use steroid creams as needed. follow up with pcp and you may require dermatology if your symptoms don't improve with recommended interventions. No qualifying data available. Post Acute Orders No qualifying data available. You Need to Schedule the Following Appointments Follow Up with RICHARD PERRY DO When:Within 2-4 days Where:0 [facility] [place] [phone] Follow Up with Go to emergency room if symptoms worsen When:Within 2-4 days Allergies NKA Medications Please ask your primary doctor or pharmacist before taking any other medication not listed, including over the counter drugs, herbal medications, vitamins and or supplements as they may interact with your home medications. What How Much When Instructions Last Dose New hydrocortisone topical (hydrocortisone 2.5% topical cream) 1 application Topical Three (3) times a day Printed Prescription Unchanged albuterol (albuterol MDI (90 mcg/ inh) CFC free inhalation aerosol) 2 puff(s) by inhalation Four (4) times a day as needed for as needed for wheezing Unchanged amphetamine-dextroamphetamine (Adderall) by mouth Unchanged escitalopram (Lexapro) by mouth Once a day Please take this list to your next doctor s visit. Bring all medications you take, including over the counter medications, herbals and other supplements with you to your doctor s visit. Patients and families are reminded to discard old lists and to update any records with all medication providers or retail pharmacies. Medication Leaflets hydrocortisone topical (amol droe KOR ti sone) Ala-Leon, Beta HC, Caldecort, Cortizone-10, Dermtex HC, Gynecort Maximum Strength, Locoid Lotion, Pandel, Proctocort, Sarnol-HC, Vanicream HC What is the most important information I should know about hydrocortisone topical? Use only as directed. Tell your doctor if you use other medicines or have other medical conditions or allergies. What is hydrocortisone topical? Hydrocortisone topical (for the skin) is a steroid medicine that is used to treat inflammation and itching caused by skin conditions that respond to steroid medication. There are many brands and forms of hydrocortisone topical available. Not all brands are listed on this medication guide. Hydrocortisone topical may also be used for purposes not listed in this medication guide. What should I discuss with my healthcare provider before using hydrocortisone topical? You should not use hydrocortisone topical if you are allergic to it. Tell your doctor if you have or have ever had: any type of skin infection; a skin reaction to any steroid medicine; cataract or glaucoma; thinning of the skin where you will apply this medicine; problems with your adrenal gland; or liver disease. Steroid medicines can increase the glucose (sugar) levels in your blood or urine. Tell your doctor if you have diabetes. It is not known if hydrocortisone topical will harm an unborn baby. Tell your doctor if you are or plan to become . Ask a doctor if it is safe to breastfeed while using this medicine. Do not give this medicine to a child without medical advice. How should I use hydrocortisone topical? Follow all directions on your prescription label and read all medication guides or instruction sheets. Use the medicine exactly as directed. Do not take by mouth. Topical medicine is for use only on the skin. Wash your hands before and after applying this medicine, unless you are using it to treat a hand condition. Apply a thin layer of medicine to the affected skin and rub it in gently. Do not apply this medicine over a large area of skin unless your doctor has told you to. Do not cover treated skin with a bandage unless your doctor tells you to. Shake hydrocortisone lotion and spray well just before each use. If you are treating the diaper area, do not use plastic pants or tight-fitting diapers. You may need medical tests to be sure this medicine is not causing harmful effects. You may need blood or urine tests while using this medicine. Stop using hydrocortisone and call your doctor if your symptoms do not improve after using this medicine for 7 days, or if your symptoms get worse or get better and then come back in a few days. Store at room temperature away from moisture and heat. Do not freeze. Keep the bottle tightly closed when not in use. Store the foam canister away from open flame or high heat. Do not puncture or burn an empty canister. What happens if I miss a dose? Apply the medicine as soon as you can, but skip the missed dose if it is almost time for your next dose. Do not apply two doses at one time. What happens if I overdose? Seek emergency medical attention or call the Poison Help line at if anyone has accidentally swallowed the medicine. High doses or long-term use of hydrocortisone topical can lead to thinning skin, easy bruising, changes in body fat (especially in your face, neck, back, and waist), increased acne or facial hair, menstrual problems, impotence, or loss of interest in sex. What should I avoid while using hydrocortisone topical? Do not use hydrocortisone topical to treat any skin condition that has not been checked by your doctor. Avoid applying hydrocortisone topical to the skin of your face, underarms, or groin area unless your doctor has told you to. Avoid using other medications on the areas you treat with hydrocortisone topical, unless you doctor tells you to. Do not get this medicine in your eyes. If contact does occur, rinse with water. What are the possible side effects of hydrocortisone topical? Get emergency medical help if you have signs of an allergic reaction: hives, difficult breathing, swelling of your face, lips, tongue, or throat. Side effects can occur if your skin absorbs topical steroid medicine. Tell your doctor if you have: swelling, weight gain (especially in your face or your upper back and torso); thinning skin, stretch mahoney, acne, increased facial hair; irregular menstrual periods, changes in sexual function; or memory problems, feeling irritable. Call your doctor at once if you have: worsening of your skin condition; pain, tenderness, headache; blurred vision, eye pain or redness, seeing halos around lights; high blood sugar--increased thirst, increased urination, dry mouth, fruity breath odor; or increased adrenal gland hormones--hunger, weight gain, swelling, skin discoloration, slow wound healing, sweating, acne, increased body hair, tiredness, mood changes, muscle weakness, missed menstrual periods, sexual changes. Children can absorb larger amounts of this medicine through the skin and may be more likely to have side effects. Common side effects may include: skin redness, itching, stinging, rash; redness or crusting around your hair follicles; burning, dryness, or other irritation of treated skin; rash, redness, itching, or irritation around your mouth; appearance and color changes in treated skin; signs of skin infection (swelling, redness, warmth, oozing); o numbness, tingling, or burning pain. This is not a complete list of side effects and others may occur. Call your doctor for medical advice about side effects. You may report side effects to FDA at 0-841-CLS-1091. What other drugs will affect hydrocortisone topical? Medicine used on the skin is not likely to be affected by other drugs you use, but many drugs can interact. Tell your doctor about all your current medicines, including prescription and nqpm-pvs-jqjpcux medicines, vitamins, and herbal products. Where can I get more information? Your doctor or pharmacist can provide more information about hydrocortisone topical. Remember, keep this and all other medicines out of the reach of children, never share your medicines with others, and use this medication only for the indication prescribed. Every effort has been made to ensure that the information provided by [employer]. ('[employer]') is accurate, up-to-date, and complete, but no guarantee is made to that effect. Drug information contained herein may be time sensitive. [employer] information has been compiled for use by healthcare practitioners and consumers in the [place] and therefore [employer] does not warrant that uses outside of the [place] are appropriate, unless specifically indicated otherwise. [employer] drug information does not endorse drugs, diagnose patients or recommend therapy. [employer] drug information is an informational resource designed to assist licensed healthcare practitioners in caring for their patients and/or to serve consumers viewing this service as a supplement to, and not a substitute for, the expertise, skill, knowledge and judgment of healthcare practitioners. The absence of a warning for a given drug or drug combination in no way should be construed to indicate that the drug or drug combination is safe, effective or appropriate for any given patient. [employer] does not assume any responsibility for any aspect of healthcare administered with the aid of information [employer] provides. The information contained herein is not intended to cover all possible uses, directions, precautions, warnings, drug interactions, allergic reactions, or adverse effects. If you have questions about the drugs you are taking, check with your doctor, nurse or pharmacist. Copyright 6529-9994 [employer]. Version: 14.02. Revision Date: 09/25/2023. Education Materials Atopic Dermatitis (Adult) Atopic dermatitis is a dry, itchy, red rash. It s also called eczema. The rash is chronic, or ongoing. It can come and go over time. The disease is often passed down in families. It causes a problem with the skin barrier that makes the skin more sensitive to the environment and other factors. The increased skin sensitivity causes an itch, which causes scratching. Scratching can worsen the itching or also break the skin. This can put the skin at risk of infection. The condition is most common in people with asthma, hay fever, hives, or dry or sensitive skin. The rash may be caused by extreme heat or heavy sweating. Skin irritants can cause the rash to flare up. These can include wool or silk clothing, grease, oils, some medicines, and harsh soaps and detergents. Emotional stress can also be a trigger. Treatment is done to relieve the itching and inflammation of the skin. Home care Follow these tips to care for your condition: Keep the areas of rash clean by bathing at least every other day. Use lukewarm water to bathe. Don t use hot water, which can dry out the skin. Don t use soaps with strong detergents. Use mild soaps made for sensitive skin. Apply a cream or ointment to damp skin right after bathing. Avoid things that irritate your skin. Wear absorbent, soft fabrics next to the skin rather than rough or scratchy materials. Use mild laundry soap free of scents and perfumes. Make sure to rinse all the soap out of your clothes. Treat any skin infection as directed. Use oral diphenhydramine to help reduce itching. This is an antihistamine you can buy at drug and grocery stores. It can make you sleepy, so use lower doses during the daytime. Or you can use loratadine. This is an antihistamine that will not make you sleepy. Do not use diphenhydramine if you have glaucoma or have trouble urinating due to an enlarged prostate. Follow-up care See your healthcare provider, or as advised. If your symptoms don t get better or if they get worse in the next 7 days, make an appointment with your healthcare provider. When to seek medical advice Call your healthcare provider right away if any of these occur: Increasing area of redness or pain in the skin Yellow crusts or wet drainage from the rash Fever of 100.4 F (38 C) or higher, or as directed by your healthcare provider [id number] The [employer]. [address] [place] [address], [place] [address]. All rights reserved. This information is not intended as a substitute for professional medical care. Always follow your healthcare professional's instructions. Additional Information VACCINATE! IT SAVES LIVES! Members of the community who have not yet received the COVID-19 vaccine and would like to receive it can visit one of [facility] vaccine clinics. There are many vaccine clinic locations within the [facility]. For locations and available times, please visit [email or web address] [email or web address] It is important to note that some COVID mobile vaccine clinics are held outdoors and may be canceled in rainy or stormy conditions. To learn more about pediatric vaccinations (ages 5-11), we invite you to visit the [facility] webpage. https://www.[facility].org/p ages/9352-[place]-Gcguufsnijd-Freq snfezr-Gajvv-Imdubrepn.html To learn more about the COVID-19 vaccine, we invite you to visit the CDC website for a list of frequently asked questions. https://www.cdc.gov/coronavirus/ 2019-ncov/vaccines/faq.html [facility] Access Instructions: Stay connected with your healthcare team and access your personal medical information anytime with the [facility] Patient Portal. If you would like a full copy of your medical records please contact the [facility] Medical Records Department Friday through Friday between 8a.m. and 4:30p.m. Please follow the directions below to access the portal: 1.Access the email account you provided upon registration to the hospital.2.Look for an invitation email from [facility].3.Open the email and access the invitation link: Accept Invitation to [facility].Fill in the required haro to create your account. Sign into [email or web address] On with your username and password that you created in the above steps to stay up to date. You can then view a summary of results, a summary of your visits, and the ability to download your summaries to your computer or send the information securely to a physician. Remember that your healthcare information is confidential, so carefully consider who you will allow to register on the [facility] Patient Portal for access to your information. You can also access the [facility] Patient Portal on the [email or web address] yonny. Simply click on Health Records under Health Data and then click on the [employer] logo. HOW TO SAFELY DISPOSE OF PRESCRIPTION MEDICATIONS Please use one of the following methods to safely dispose of your unused medications. 1.Use a drug disposal kit: the drug disposal pouch allows you to safely discard your old and unused drugs. Ask your nurse to give you one when you are discharged.2.Visit a local take-back location: Many local pharmacies and police departments have programs that collect old and unwanted prescription drugs. Call your local pharmacy or go to http://[employer].Aquamar[employer] Power/7C2Fk0i to find one close to you.3.Make use of household items: Use cat litter or old coffee grounds to dispose medications if other options are not available. Mix your drugs with these household products, seal them in an airtight container and throw it into the garbage. Call [facility]: [phone] to be sure your drugs can be disposed of in this way. Some medicines may require a different approach.4.Never flush your medications down the toilet. IF YOU HAVE BEEN PRESCRIBED AN OPIOIDS FOR PAIN If you have been prescribed an opioid (such as hydrocodone, oxycodone or morphine), it is critical to understand the possible side effects and risks of opioid pain medications. Even when taken as directed, opioids can have several side effects including: Tolerance, meaning you might need to take more of a medication for the same pain relief. Nausea, vomiting and/or constipation. Sleepiness, dizziness, dry mouth, confusion, depression or itching. Physical dependence, meaning you have withdrawal symptoms when a medication is stopped ? this can develop within a few days. KNOW YOUR RESPONSIBILITIES It is important to know exactly how much and how often to take the opioid pain medications you are prescribed. Never take opioids in higher amounts or more often than prescribed. Do not combine opioids with alcohol or other drugs that cause drowsiness, such as benzodiazepines, also known as benzos, including diazepam and alprazolam, muscle relaxants or sleep aids. Never sell or share prescription opioids. This is illegal. Store opioids in a secure place and out of reach of others (including children, family, friends and visitors). The last page(s) of this document has been signed and retained as a CHART COPY Signatures Patient Education Materials Atopic Dermatitis (Eczema) Medication Leaflets hydrocortisone topical My discharge plan and instructions have been reviewed and explained to me and IADELSO KORAN L understand my current condition and have read and understand these discharge instructions. I have received a written copy of the plan/instructions. If I have questions, I am aware that I should contact my doctor. Patient/Academic Support Assistant Signature: Date/Time: Relationship to Patient: Witness Name/Signature: Date/Time: [facility] 10-18-2024 Note HNO ID: [id number] Author: CARI CHAUHAN APRN.[facility] Service: ? Author Type: Nurse Practitioner Type: Progress Notes Filed: 10/18/2024 19:41 Note Text: CC: Patient presents with: Vomiting: x this am HPI: Sarai Darden is a 18 year old male who presents to the office with complaint of vomited once from eating to much this morning Symptoms are improving Associated symptoms includes none. Denies fever, nausea, vomiting , and diarrhea. Treatments tried include nothing so far. with no relief of symptoms. Sick contacts: unknown. History of asthma, frequent episodes of bronchitis, chronic bronchitis, bronchiectasis or COPD: No Smoker: No Seasonal/environmental allergies: No The ROS is otherwise negative. The patient's pmh, medications, allergies, and past visits are reviewed. PHYSICAL EXAM: BP 106/68 Pulse 80 Temp 36.4 ?C (97.6 ?F) Resp 16 Wt 74 kg (163 lb 2.3 oz) SpO2 98% General appearance: alert, cooperative, pleasant, in no acute distress Head: Normocephalic Eyes: EOM's intact, conjunctiva pink and moist, no icterus, sclera white, non-injected Heart: Negative. RRR without obvious murmur, gallop, or rubs. No ectopy. Lungs: clear to auscultation, without rales or wheeze, good air exchange Abdomen: soft non tender No past medical history on file. No past surgical history on file. ALLERGIES Patient has no known allergies. MEDICATIONS OmegaGenics EPA-DHA 2400 (High Concentrate EPA/DHA liquid) (Loomia) Take one teaspoon (5 ml) 2 times daily with food (Patient not taking: Reported on 10/18/2024) Complete Mineral Complex (KrowdPad) Take 3 capsules by mouth daily with food. (Patient not taking: Reported on 10/18/2024) B-Complex Plus (Pure Encapsulations) Take 1 capsule by mouth daily with food. (Patient not taking: Reported on 10/18/2024) Magnesium Glycinate 120mg - 90 ct. (Pure Encapsulations) Take 4 capsules daily (Patient not taking: Reported on 10/18/2024) Vitamin D [place] (KrowdPad) Take 1 capsule by mouth daily with food. (Patient not taking: Reported on 10/18/2024) No family history on file. ASSESSMENT/PLAN: 1. Vomiting without nausea, unspecified vomiting type - ICD9: 787.03, ICD10: R11.11 Time believed to be an isolated incident. If patient symptoms persist or change patient will follow-up. Potential red flag symptoms discussed with the patient. Reviewed appropriate action plan to take if red flag symptoms occur. Patient agreeable to treatment plan. Cari Chauhan APRN.[facility] 10-18-2024 History of Present illness Narrative CC: Patient presents with: Vomiting: x this am HPI: Sarai Darden is a 18 year old male who presents to the office with complaint of vomited once from eating to much this morning Symptoms are improving Associated symptoms includes none. Denies fever, nausea, vomiting , and diarrhea. Treatments tried include nothing so far. with no relief of symptoms. Sick contacts: unknown. History of asthma, frequent episodes of bronchitis, chronic bronchitis, bronchiectasis or COPD: No Smoker: No Seasonal/environmental allergies: No The ROS is otherwise negative. The patient's pmh, medications, allergies, and past visits are reviewed. PHYSICAL EXAM: BP 106/68 Pulse 80 Temp 36.4 C (97.6 F) Resp 16 Wt 74 kg (163 lb 2.3 oz) SpO2 98% General appearance: alert, cooperative, pleasant, in no acute distress Head: Normocephalic Eyes: EOM's intact, conjunctiva pink and moist, no icterus, sclera white, non-injected Heart: Negative. RRR without obvious murmur, gallop, or rubs. No ectopy. Lungs: clear to auscultation, without rales or wheeze, good air exchange Abdomen: soft non tender No past medical history on file. No past surgical history on file. ALLERGIES Patient has no known allergies. MEDICATIONS OmegaGenics EPA-DHA 2400 (High Concentrate EPA/DHA liquid) (Loomia) Take one teaspoon (5 ml) 2 times daily with food (Patient not taking: Reported on 10/18/2024) Complete Mineral Complex (KrowdPad) Take 3 capsules by mouth daily with food. (Patient not taking: Reported on 10/18/2024) B-Complex Plus (Pure Encapsulations) Take 1 capsule by mouth daily with food. (Patient not taking: Reported on 10/18/2024) Magnesium Glycinate 120mg - 90 ct. (Pure Encapsulations) Take 4 capsules daily (Patient not taking: Reported on 10/18/2024) Vitamin D [place] (KrowdPad) Take 1 capsule by mouth daily with food. (Patient not taking: Reported on 10/18/2024) No family history on file. ASSESSMENT/PLAN: 1. Vomiting without nausea, unspecified vomiting type - ICD9: 787.03, ICD10: R11.11 Time believed to be an isolated incident. If patient symptoms persist or change patient will follow-up. Potential red flag symptoms discussed with the patient. Reviewed appropriate action plan to take if red flag symptoms occur. Patient agreeable to treatment plan. Cari Chauhan APRN.[employer] documented in this encounter [facility] 10-26-2021 Hospital Discharge instructions Patient Education 10/26/2021 20:21:23 Recognizing Suicide Warning Signs in Yourself Recognizing Suicide Warning Signs in Yourself People who are thinking about suicide may not know they are depressed. Certain thoughts, feelings, and actions can be signals that let you know you may need help. The best thing you can do is watch for signs that you may be at risk. Then, ask for help. You can talk to your regular healthcare provider or seek help from a mental health provider. Depression Depression is a treatable illness. To know if depression is causing you to feel like ending your life, ask yourself: Do I feel worthless, guilty, helpless, or hopeless? Have I been feeling sad, down, or blue on most days? Have I lost interest in my work or people I used to enjoy? Do I have trouble sleeping or do I sleep too much? Do I eat more or less than usual? Do I feel tired, weak, and low on energy? Do I feel restless and unable to sit still? Do I have trouble thinking or making choices? Do I cry more than usual? Do I feel life isn't worth living? Warning signs for suicide Thinking often about taking your life Planning how you may attempt it Talking or writing about committing suicide Feeling that is the only solution to your problems Feeling a pressing need to make out your will or arrange your Giving away things you own Participating in risky behaviors, such as sex with someone you don't know or drinking and driving Buying a lethal weapon, such as a gun, or hoarding medicines that could be used in an over dose If you notice any of these warning signs, call for help right away or go to your closest hospital emergency department. You can also call a mental health clinic or a 24-hour suicide crisis hotline for help and support. Search for local suicide prevention resources on your computer or look for the number in the white pages of your phone book under Suicide. In an emergency, if you are in immediate risk of harming yourself, call 911. For more information about depression: National [place] of [employer] 765-117-8004 www.nimh.nih.gov National Suicide Prevention Lifeline 893-731-9430 (141-829-HPMH) www.suicidepreventionlifeline.or g National [place] on Mental Illness 832-175-3018 www.tony.org Mental Health Mar[place] 303-475-1810 www.nmha.org National Suicide Hotline 236-247-5478 (800-SUICIDE) 2561-[address] [employer] [place] [address]. All rights reserved. This information is not intended as a substitute for professional medical care. Always follow your healthcare professional's instructions. Follow Up Care 10/26/2021 18:45:48 With:Go to emergency room if symptoms worsen Address:Unknown When:2-4 days With:MARIA E CHÁVEZ MD Address: [address] [place] [address] [address] [place] [address] When:2-[address] [facility] Evaluation + Plan note No data available for this section [facility] Evaluation note Diagnosis Vomiting without nausea, unspecified vomiting type- [facility] Diagnosis Vomiting, unspecified vomiting type, unspecified whether nausea present- Primary documented in this encounter [facility]No [facility]: Reason for referral (narrative)No reason for referral information availableSt. 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 DATE CREATED AUTHOR AUTHOR'S ORGANIZ ATION 05/29/2025 [facility] Source Comments (unrecognize d section and content) In the event this informatio n is protected by the Federal Confidentiality of Alcohol and Drug Abuse Patient Records regulations: The Federal rules restrict any use of the information to criminally investigate or prosecute any alcohol or drug abuse patient.[facility] the event this information is protected by the Federal Confidentiality of Alcohol and Drug Abuse Patient Records regulations: The Federal rules restrict any use of the information to criminally investigate or prosecute any alcohol or drug abuse patient.[facility] Reason for Visit (unrecogniz ed section and content) Reason Comments Vomiting x this am Reason Comments joaquins note for missing work today d/t vomiting Patient Care team informatio n (unrecognized section and content) Team Status: Inactive Member Role/Relationship Status Dates PRUDENCE Causey Attending Provider Active Start: May 24, 2025 End: May 24, 2025 Goals (unrecognized section and content) Goals may be documented in a n alternate section FOR RECORDS PERTAINING TO PATIENTS WHO ARE OR HAVE BEEN ENROLLED IN A CHEMICAL DEPENDENCY/SUBSTANCEABUSE PROGRAM, SOME INFORMATION MAY BE OMITTED. This clinical summary was aggregated from multiple sources. Caution should be exercised in using it in the provision of clinical care. This summary normalizes information from multiple sources, and as a consequence, information in this document may materially change the coding, format and clinical context of patient data. In addition, data may be omitted in some cases. CLINICAL DECISIONS SHOULD BE BASED ON THE PRIMARY CLINICAL RECORDS. [facility] [employer] [facility]. provides no warranty or guarantee of the accuracy or completeness of information in this document.
[2025-06-05 05:34] VITALS: BP 117/71; PULSE 108; RESP 20; TEMP 36.6; O2SAT 99
== END 2025-06-05 05:57 | disposition home or self-care (01) ==
PROVIDERS: Emergency Provider Student in an Organized Health Care Education/Training Program; Visit Provider Student in an Organized Health Care Education/Training Program
DX: J45.909 Unspecified asthma, uncomplicated (principal)
CPT/HCPCS: 94640; 99282

== ENCOUNTER → 2025-09-27 | Outpatient (CLI) | payer MEDICAID, SELFPAY ==
--- NOTE | 2025-09-27 16:12 | RAD_ITS ---
PROCEDURE: RIGHT ANKLE MIN 3 VIEWS 09/27/2025 REASON FOR EXAM: PAIN TECHNIQUE: Procedure Code: RADANK Modality: DX Procedure: ANKLE MIN 3 VIEWS COMPARISON: None. FINDINGS: No acute fracture or dislocation. Alignment is anatomic. Preserved joint spaces. No aggressive osseous lesion. Mild soft tissue swelling about the lateral malleolus. RAD/Ankle min 3 Views IMPRESSION: No acute fracture or dislocation. Mild soft tissue swelling at the lateral ankle may reflect sprain injury. Reading Location: [id number]
--- NOTE | 2025-09-27 16:12 | RAD_ITS ---
PROCEDURE: LEFT WRIST MIN 3 VIEWS 09/27/2025 REASON FOR EXAM: PAIN TECHNIQUE: Procedure Code: RADWR Modality: DX Procedure: WRIST MIN 3 VIEWS COMPARISON: None. FINDINGS: No acute fracture or dislocation. Alignment is anatomic. Preserved joint spaces. No aggressive osseous lesion. No marked soft tissue swelling or radiopaque foreign body. RAD/Wrist min 3 Views IMPRESSION: No acute fracture or dislocation. Reading Location: [id number]
== END | disposition home or self-care (01) ==
LOC: MTRAD 16:12
PROVIDERS: Referring Provider Physician Assistant; Visit Provider Physician Assistant
DX: M25.571 Pain in right ankle and joints of right foot (principal); M25.532 Pain in left wrist
CPT/HCPCS: 73110; 73610